=== PATIENT | female | born 1960 | race African-American/Black ===

== ENCOUNTER 2016-12-14 07:29 | Emergency (ER) | payer BC ==
[~2016-12-14] VITALS: Ht 167.6 cm; Wt 52.0 kg
[~2016-12-14 07:29] MED LIST: ACET650S25 PO; XOPENEX
[2016-12-14] MEDS ORDERED: PREDNISONE 20MG TABLET PO STA (08:12)
[2016-12-14] MEDS ORDERED: IPRATROPIUM BROMIDE (0.02%) 0.5MG/2.5ML NEB HHN STA (08:12)
[2016-12-14] MEDS ORDERED: ALBUTEROL (0.083%) 2.5MG/3ML NEB HHN STA (08:12)
[2016-12-14] MEDS ORDERED: ALBUTEROL (0.083%) 2.5MG/3ML NEB ONE (08:25)
[2016-12-14] MEDS ORDERED: IPRATROPIUM BROMIDE (0.02%) 0.5MG/2.5ML NEB ONE (08:25)
[2016-12-14 08:32] VITALS: BP 124/49
== END 2016-12-14 09:05 | disposition home or self-care (01) ==
LOC: ER 07:32
DX: J45.901 Unspecified asthma with (acute) exacerbation (principal); E03.9 Hypothyroidism, unspecified; Z88.0 Allergy status to penicillin; Z88.1 Allergy status to other antibiotic agents
CPT/HCPCS: 94640; 99283; J7512; J7611

== ENCOUNTER 2017-02-27 14:40 | Emergency (ER) | payer BC ==
[~2017-02-27] VITALS: Ht 167.6 cm; Wt 59.0 kg
[2017-02-27 14:55] VITALS: BP 138/70
== END 2017-02-27 22:24 | disposition left against medical advice (07) ==
LOC: ER 15:31
DX: Z53.21 Procedure and treatment not carried out due to patient leaving prior to being seen by health care provider (principal)

== ENCOUNTER 2017-07-09 09:06 | Emergency (ER) | payer BC ==
[~2017-07-09] VITALS: Ht 167.6 cm; Wt 61.0 kg
[2017-07-09] MEDS ORDERED: IPRATROPIUM BROMIDE (0.02%) 0.5MG/2.5ML NEB HHN STA (09:34)
[2017-07-09] MEDS ORDERED: ALBUTEROL (0.083%) 2.5MG/3ML NEB HHN STA (09:34)
[2017-07-09] MEDS ORDERED: PREDNISONE 20MG TABLET PO STA (09:34)
[2017-07-09 10:44] LABS: HEMATOCRIT. 35.6 % (36.0-48.0); HEMOGLOBIN. 11.5 g/dL (12.0-16.0); MEAN CORPUSCULAR HEMOGLOBIN 28.7 pg (28.0-32.0); MEAN CORPUSCULAR VOLUME 88.4 fL (81.0-99.0); MEAN PLATELET VOLUME 9.2 fl (7.4-10.4); PLATELET 186 x1000/uL (130-400); RED BLOOD CELL COUNT 4.02 mill/uL (4.2-5.4); RED CELL DISTRIBUTION WIDTH 12.8 % (11.6-14.6)
[2017-07-09 10:50] LABS: PROTHROMBIN TIME 10.9 sec (9.4-11.6)
[2017-07-09 11:52] LABS: PLATELET ESTIMATE NORMAL
[2017-07-09 12:09] LABS: CHLORIDE 105 mEq/L (98-107)
[2017-07-09] MEDS ORDERED: ALBUTEROL (0.083%) 2.5MG/3ML NEB HHN ONE (12:45)
[2017-07-09 13:44] VITALS: BP 127/64
== END 2017-07-09 13:51 | disposition home or self-care (01) ==
LOC: ER 09:14
DX: J45.901 Unspecified asthma with (acute) exacerbation (principal); M32.9 Systemic lupus erythematosus, unspecified; I49.1 Atrial premature depolarization; Z88.0 Allergy status to penicillin; Z88.1 Allergy status to other antibiotic agents
CPT/HCPCS: 36415; 71045; 80053; 85025; 85610; 93005; 94640; 99285; J7512; J7611

== ENCOUNTER 2018-01-29 07:49 | Emergency (ER) | payer BC ==
[~2018-01-29] VITALS: Ht 167.6 cm; Wt 57.9 kg
[2018-01-29] MEDS ORDERED: ALBU90AE INH (07:58)
[2018-01-29] MEDS ORDERED: IBUPROFEN 600MG TABLET PO ONE (09:00)
[2018-01-29] MEDS ORDERED: ALBUTEROL (0.5%) 2.5MG/0.5ML NEB HHN ONE (09:00)
[2018-01-29 10:43] VITALS: BP 147/61
== END 2018-01-29 10:43 | disposition home or self-care (01) ==
LOC: ER 07:49
DX: J06.9 Acute upper respiratory infection, unspecified (principal); R06.2 Wheezing; R03.0 Elevated blood-pressure reading, without diagnosis of hypertension; L50.9 Urticaria, unspecified; Z88.0 Allergy status to penicillin; Z91.012 Allergy to eggs
CPT/HCPCS: 71045; 87804; 94640; 99284; J7611

== ENCOUNTER 2018-04-06 10:38 | Inpatient (IN) | payer BC ==
[~2018-04-06] VITALS: Ht 167.6 cm; Wt 67.6 kg
[~2018-04-06 10:38] MED LIST changes: +ALBU90AE INH; -XOPENEX
[2018-04-06] MEDS ORDERED: METHYLPREDNISOLONE SOD SUCC 125 MG/2 ML VIAL IV STA (11:31)
[2018-04-06] MEDS ORDERED: IPRATROPIUM/ALBUTEROL 0.5-3(2.5)MG/3ML NEB HHN ONE ×2 (11:45→15:15)
[2018-04-06] MEDS ORDERED: MAGNESIUM 2 G PREMIX 50 ML IV ONE (11:45)
[2018-04-06 11:49] LABS: BASOPHILS % 0.9 % (0.0-2.0); EOSINOPHILS % 3.4 % (0.0-5.0); HEMOGLOBIN. 11.6 g/dL (12.0-16.0); LYMPHOCYTES % 32.8 % (20.0-50.0); MEAN CORPUSCULAR HEMOGLOBIN 29.7 pg (28.0-32.0); MEAN CORPUSCULAR VOLUME 89.9 fL (81.0-99.0); MEAN PLATELET VOLUME 9.5 fl (7.4-10.4); NEUTROPHILS % 48.9 % (40.0-76.0); PLATELET 203 x1000/uL (130-400)
[2018-04-06 11:55] LABS: CHLORIDE 106 mEq/L (98-107)
[2018-04-06] MEDS ORDERED: ALBUTEROL (0.5%) 2.5MG/0.5ML NEB HHN ONE (13:15)
[2018-04-06] MEDS ORDERED: CLONIDINE 0.1MG TABLET PO PRN (16:30)
[2018-04-06] MEDS ORDERED: NA PHOS,M-B/NA PHOS,DI-BA ENEMA 118ML PR PRN (16:30)
[2018-04-06] MEDS ORDERED: HYDRALAZINE 20MG/ML VIAL IV PRN (16:30)
[2018-04-06] MEDS ORDERED: GUAIFENESIN 200MG/10ML SUGAR FREE UDC PO PRN (16:30)
[2018-04-06] MEDS ORDERED: ONDANSETRON HCL 4MG/2ML INJ IV PRN (16:30)
[2018-04-06] MEDS ORDERED: HYDROCODONE/ACETAMINOPHEN 10/325MG TABLET PO PRN (16:30)
[2018-04-06] MEDS ORDERED: ACETAMINOPHEN 325MG TABLET PO PRN (16:30)
[2018-04-06] MEDS ORDERED: LORAZEPAM 2MG/ML CPJ IV PRN (16:30)
[2018-04-06] MEDS ORDERED: IPRATROPIUM/ALBUTEROL 0.5-3(2.5)MG/3ML NEB INH PRN (16:30)
[2018-04-06] MEDS ORDERED: DOCUSATE SODIUM 100MG CAPSULE PO PRN (16:30)
[2018-04-06] MEDS ORDERED: DIPHENHYDRAMINE 50MG/ML VIAL IV PRN (16:30)
[2018-04-06] MEDS ORDERED: HYDROMORPHONE HCL/PF 2MG/ML CPJ IV PRN (16:30)
[2018-04-06] MEDS ORDERED: MAGNESIUM/ALUMINUM HYDROXIDE/SIMETHICONE 30ML UDC PO PRN (16:30)
[2018-04-06] MEDS ORDERED: ENOXAPARIN 40MG/0.4ML SYR SUBCUT NR (18:30)
[2018-04-06] MEDS ORDERED: METHYLPREDNISOLONE SOD SUCC 125 MG/2 ML VIAL IV NR (18:30)
[2018-04-06 20:00] VITALS: BP 118/48
[2018-04-06 22:31] VITALS: BP 114/56
[2018-04-06] MEDS: SODIUM CHLORIDE 0.9% INJ 3ML FLUSH IVF SCH (22:53)
[2018-04-06] MEDS: METHYLPREDNISOLONE SOD SUCC 125 MG/2 ML VIAL IV SCH (23:53)
[2018-04-07] VITALS: BP 118/48
[2018-04-07 00:53] LABS: CREATINE KINASE 136 IU/L (26-192)
[2018-04-07 00:54] LABS: CREATINE KINASE MB FRACTION < 1.0 ng/mL (0.5-3.6)
[2018-04-07 04:00] VITALS: BP 117/63
[2018-04-07] MEDS: SODIUM CHLORIDE 0.9% INJ 3ML FLUSH IVF SCH ×3 (05:10→23:31)
[2018-04-07] MEDS: METHYLPREDNISOLONE SOD SUCC 125 MG/2 ML VIAL IV SCH ×2 (05:30→11:54)
[2018-04-07 06:34] LABS: BASOPHILS % 0.1 % (0.0-2.0); HEMOGLOBIN. 10.8 g/dL (12.0-16.0); LYMPHOCYTES % 9.7 % (20.0-50.0); MEAN CORPUSCULAR HEMOGLOBIN 29.1 pg (28.0-32.0); MEAN CORPUSCULAR VOLUME 88.7 fL (81.0-99.0); MEAN PLATELET VOLUME 9.5 fl (7.4-10.4); MONOCYTES % 3.8 % (2.0-8.0); NEUTROPHILS % 86.4 % (40.0-76.0); PLATELET 206 x1000/uL (130-400); RED BLOOD CELL COUNT 3.73 mill/uL (4.2-5.4); RED CELL DISTRIBUTION WIDTH 13.6 % (11.6-14.6)
[2018-04-07 07:33] LABS: CHLORIDE 105 mEq/L (98-107)
[2018-04-07 07:49] LABS: CREATINE KINASE 129 IU/L (26-192)
[2018-04-07 07:53] LABS: CREATINE KINASE MB FRACTION 1.2 ng/mL (0.5-3.6)
[2018-04-07 08:00] VITALS: BP 115/44
[2018-04-07] MEDS: ASPIRIN 81MG EC TABLET PO SCH (08:43)
[2018-04-07] MEDS ORDERED: GUAIFENESIN 200MG/10ML SUGAR FREE UDC PO PRN ×2 (11:15)
[2018-04-07 12:00] VITALS: BP 128/69
[2018-04-07 16:00] VITALS: BP 117/60
[2018-04-07] MEDS: ALBUTEROL (0.083%) 2.5MG/3ML NEB HHN SCH ×2 (16:56→20:25)
[2018-04-07] MEDS: METHYLPREDNISOLONE SOD SUCC 40 MG/ML VIAL IV SCH ×2 (17:22→22:43)
[2018-04-07] MEDS: HYDROCORTISONE 1% OINT 28.35GM TOP SCH ×2 (17:24→23:34)
[2018-04-07 20:00] VITALS: BP 124/46
[2018-04-07] MEDS: ENOXAPARIN 40MG/0.4ML SYR SUBCUT SCH (23:31)
[2018-04-08] VITALS: BP 108/39
[2018-04-08] MEDS: ALBUTEROL (0.083%) 2.5MG/3ML NEB HHN SCH ×6 (00:22→21:13)
[2018-04-08 04:00] VITALS: BP 102/58
[2018-04-08] MEDS: METHYLPREDNISOLONE SOD SUCC 40 MG/ML VIAL IV SCH ×2 (06:25→13:50)
[2018-04-08] MEDS: SODIUM CHLORIDE 0.9% INJ 3ML FLUSH IVF SCH ×3 (06:31→23:00)
[2018-04-08 08:00] VITALS: BP 112/45
[2018-04-08] MEDS: HYDROCORTISONE 1% OINT 28.35GM TOP SCH ×2 (08:51→23:00)
[2018-04-08] MEDS: ASPIRIN 81MG EC TABLET PO SCH (08:51)
[2018-04-08 12:00] VITALS: BP 131/55
[2018-04-08] MEDS: ALBUTEROL (0.5%) 2.5MG/0.5ML NEB HHN PRN ×2 (12:30→15:52)
[2018-04-08 16:00] VITALS: BP 127/60
[2018-04-08 20:00] VITALS: BP 128/67
[2018-04-08] MEDS ORDERED: METHYLPREDNISOLONE SOD SUCC 40 MG/ML VIAL IV SCH (22:00)
[2018-04-08] MEDS: ENOXAPARIN 40MG/0.4ML SYR SUBCUT SCH (22:30)
[2018-04-09] VITALS: BP 121/76
[2018-04-09] MEDS: ALBUTEROL (0.083%) 2.5MG/3ML NEB HHN SCH ×3 (00:55→08:56)
[2018-04-09 04:00] VITALS: BP 126/78
[2018-04-09] MEDS: SODIUM CHLORIDE 0.9% INJ 3ML FLUSH IVF SCH (07:26)
[2018-04-09 07:59] VITALS: BP 125/84
[2018-04-09 08:00] VITALS: BP 122/53
[2018-04-09] MEDS: ASPIRIN 81MG EC TABLET PO SCH (08:50)
[2018-04-09] MEDS: HYDROCORTISONE 1% OINT 28.35GM TOP SCH (08:50)
[2018-04-09] MEDS ORDERED: PREDNISONE 20MG TABLET PO SCH (09:00)
[2018-04-09 12:00] VITALS: BP_SYST 121; BP_SYST 125; BP_DIAS 60; BP_DIAS 66
== END 2018-04-09 12:02 | disposition home or self-care (01) | DRG 202 ==
LOC: ER 10:38 → 6EST 15:18 → ENRESERV 20:01 → 6EST 22:00
PROVIDERS: ADMIT Internal Medicine; ATTEND Internal Medicine
DX: J45.21 Mild intermittent asthma with (acute) exacerbation (principal); R65.10 Systemic inflammatory response syndrome (SIRS) of non-infectious origin without acute organ dysfunction; M32.9 Systemic lupus erythematosus, unspecified; D72.819 Decreased white blood cell count, unspecified; Z79.899 Other long term (current) drug therapy; Z98.891 History of uterine scar from previous surgery; Z88.0 Allergy status to penicillin; Z88.1 Allergy status to other antibiotic agents; Z91.012 Allergy to eggs
CPT/HCPCS: 36415; 71045; 82550; 82553; 84484; 93005; 94640; 96365; 96366; 96375; 99285; J1650; J2920; J2930; J3475; J7512; J7611; J7620

== ENCOUNTER 2018-06-19 08:39 | Emergency (ER) | payer BC ==
[~2018-06-19] VITALS: Ht 167.6 cm; Wt 64.0 kg
[2018-06-19] MEDS ORDERED: PREDNISONE 20MG TABLET PO ONE (09:15)
[2018-06-19] MEDS ORDERED: ALBUTEROL (0.083%) 2.5MG/3ML NEB HHN ONE ×2 (09:15→10:00)
[2018-06-19] MEDS ORDERED: IPRATROPIUM BROMIDE (0.02%) 0.5MG/2.5ML NEB HHN ONE (09:15)
[2018-06-19 09:17] LABS: HEMATOCRIT. 40.5 % (36.0-48.0); MEAN CORPUSCULAR HEMOGLOBIN 28.8 pg (28.0-32.0); MEAN CORPUSCULAR VOLUME 89.9 fL (81.0-99.0); MEAN PLATELET VOLUME 9.6 fl (7.4-10.4); PLATELET 229 x1000/uL (130-400); RED CELL DISTRIBUTION WIDTH 12.8 % (11.6-14.6)
[2018-06-19 09:28] LABS: CHLORIDE 105 mEq/L (98-107)
[2018-06-19 09:39] LABS: PLATELET ESTIMATE NORMAL
[2018-06-19 10:04] LABS: CLARITY URINE CLEAR (CLEAR); COLOR URINE YELLOW (YELLOW); KETONES URINE NEGATIVE (NEGATIVE); LEUKOCYTE ESTERASE URINE 3+ (NEGATIVE); NITRITE URINE NEGATIVE (NEGATIVE); OCCULT BLOOD URINE NEGATIVE (NEGATIVE); PROTEIN URINE NEGATIVE (NEGATIVE); SPECIFIC GRAVITY URINE 1.015 (1.005-1.030)
[2018-06-19 11:40] VITALS: BP 124/74
== END 2018-06-19 11:53 | disposition home or self-care (01) ==
LOC: ER 08:39
DX: R07.89 Other chest pain (principal); R06.02 Shortness of breath; J45.909 Unspecified asthma, uncomplicated; Z90.89 Acquired absence of other organs; Z98.890 Other specified postprocedural states; Z88.0 Allergy status to penicillin; Z91.013 Allergy to seafood; Z91.012 Allergy to eggs; Z88.8 Allergy status to other drugs, medicaments and biological substances
CPT/HCPCS: 36415; 71045; 80053; 81003; 83880; 84484; 85025; 93005; 94640; 99284; J7512; J7611

== ENCOUNTER 2018-11-23 08:21 | Emergency (ER) | payer BC ==
[~2018-11-23] VITALS: Ht 396.2 cm; Wt 61.0 kg
[2018-11-23] MEDS ORDERED: METHYLPREDNISOLONE SOD SUCC 125 MG/2 ML VIAL IV STA (08:53)
[2018-11-23] MEDS ORDERED: ALBUTEROL (0.083%) 2.5MG/3ML NEB HHN STA ×2 (08:53→12:24)
[2018-11-23] MEDS ORDERED: IPRATROPIUM BROMIDE (0.02%) 0.5MG/2.5ML NEB HHN STA (08:53)
[2018-11-23] MEDS ORDERED: ASPIRIN 81MG TABLET PO ONE (09:00)
[2018-11-23 09:20] LABS: HEMATOCRIT. 33.7 % (36.0-48.0); MEAN CORPUSCULAR HEMOGLOBIN 29.5 pg (28.0-32.0); MEAN CORPUSCULAR VOLUME 90.1 fL (81.0-99.0); MEAN PLATELET VOLUME 9.8 fl (7.4-10.4); PLATELET 177 x1000/uL (130-400); RED BLOOD CELL COUNT 3.74 mill/uL (4.2-5.4); RED CELL DISTRIBUTION WIDTH 13.2 % (11.6-14.6)
[2018-11-23 09:25] LABS: CHLORIDE 109 mEq/L (98-107)
[2018-11-23 09:39] LABS: PLATELET ESTIMATE NORMAL
[2018-11-23 13:51] VITALS: BP 115/58
== END 2018-11-23 14:01 | disposition home or self-care (01) ==
LOC: ER 08:21
DX: J45.901 Unspecified asthma with (acute) exacerbation (principal); Z98.890 Other specified postprocedural states; Z90.49 Acquired absence of other specified parts of digestive tract; E05.90 Thyrotoxicosis, unspecified without thyrotoxic crisis or storm; Z88.0 Allergy status to penicillin; Z91.013 Allergy to seafood; Z91.012 Allergy to eggs; Z88.1 Allergy status to other antibiotic agents
CPT/HCPCS: 36415; 71045; 80053; 83880; 84484; 85025; 93005; 94644; 96374; 99285; J2930; J7611; Z7610

== ENCOUNTER 2018-12-29 14:03 | Emergency (ER) | payer BC, MEDICAID ==
[~2018-12-29] VITALS: Ht 167.6 cm; Wt 62.0 kg
[2018-12-29] MEDS ORDERED: IPRATROPIUM BROMIDE (0.02%) 0.5MG/2.5ML NEB HHN STA (15:22)
[2018-12-29] MEDS ORDERED: ALBUTEROL (0.083%) 2.5MG/3ML NEB HHN STA ×2 (15:22→18:21)
[2018-12-29] MEDS ORDERED: METHYLPREDNISOLONE SOD SUCC 125 MG/2 ML VIAL IV STA (15:22)
[2018-12-29 15:39] LABS: CHLORIDE 103 mEq/L (98-107)
[2018-12-29 15:40] LABS: EOSINOPHILS % 3.4 % (0.0-5.0); HEMATOCRIT. 38.1 % (36.0-48.0); HEMOGLOBIN. 12.3 g/dL (12.0-16.0); LYMPHOCYTES % 11.6 % (20.0-50.0); MEAN CORPUSCULAR HEMOGLOBIN 29.1 pg (28.0-32.0); MEAN CORPUSCULAR VOLUME 89.8 fL (81.0-99.0); MEAN PLATELET VOLUME 9.6 fl (7.4-10.4); MONOCYTES % 12.3 % (2.0-8.0); NEUTROPHILS % 71.7 % (40.0-76.0); PLATELET 231 x1000/uL (130-400); RED BLOOD CELL COUNT 4.24 mill/uL (4.2-5.4)
[2018-12-29 19:33] VITALS: BP 110/81
== END 2018-12-29 20:01 | disposition home or self-care (01) ==
LOC: ER 14:03
DX: J45.901 Unspecified asthma with (acute) exacerbation (principal); M32.9 Systemic lupus erythematosus, unspecified; E03.9 Hypothyroidism, unspecified
CPT/HCPCS: 36415; 71045; 80053; 83880; 84484; 85025; 93005; 94640; 94644; 96374; 99285; J2930; J7611; Z7610

== ENCOUNTER 2019-01-05 09:09 | Emergency (ER) | payer MEDICAID ==
[~2019-01-05] VITALS: Ht 165.1 cm; Wt 85.0 kg
[2019-01-05 12:05] VITALS: BP 117/66
== END 2019-01-05 12:07 | disposition home or self-care (01) ==
LOC: ER 09:12
DX: H10.89 Other conjunctivitis (principal)
CPT/HCPCS: 99283

== ENCOUNTER 2020-04-16 14:37 | Emergency (ER) | payer MEDICAID ==
[~2020-04-16] VITALS: Ht 167.6 cm; Wt 68.0 kg
[2020-04-16] MEDS ORDERED: ALBUTEROL (0.083%) 2.5MG/3ML NEB HHN STA (15:29)
[2020-04-16] MEDS ORDERED: PREDNISONE 20MG TABLET PO STA (15:29)
[2020-04-16] MEDS ORDERED: IPRATROPIUM BROMIDE (0.02%) 0.5MG/2.5ML NEB HHN STA (15:29)
[2020-04-16] MEDS ORDERED: P50 MT (17:46)
[2020-04-16 18:03] VITALS: BP 165/72
== END 2020-04-16 18:04 | disposition home or self-care (01) ==
LOC: ER 14:37
DX: J45.901 Unspecified asthma with (acute) exacerbation (principal); R03.0 Elevated blood-pressure reading, without diagnosis of hypertension; M32.9 Systemic lupus erythematosus, unspecified; E03.9 Hypothyroidism, unspecified
CPT/HCPCS: 94640; 99285; J7512; Z7610

== ENCOUNTER 2020-06-24 20:50 | Inpatient (IN) | payer MEDICAID, OTHER ==
[~2020-06-24] VITALS: Ht 167.6 cm; Wt 73.5 kg
[~2020-06-24 20:50] MED LIST changes: +P50 MT
[2020-06-24] MEDS ORDERED: METHOCARBAMOL 500MG TABLET PO ONE (22:45)
[2020-06-24] MEDS ORDERED: KETOROLAC 30MG/ML VIAL IM ONE (22:45)
[2020-06-25] MEDS ORDERED: SODIUM CHLORIDE 0.9% 1,000 ML IV ONE (01:45)
[2020-06-25 02:04] LABS: BASOPHILS % 0.7 % (0.0-2.0); EOSINOPHILS % 0.2 % (0.0-5.0); HEMATOCRIT. 36.7 % (36.0-48.0); HEMOGLOBIN. 12.5 g/dL (12.0-16.0); LYMPHOCYTES % 23.6 % (20.0-50.0); MEAN CORPUSCULAR HEMOGLOBIN 30.9 pg (28.0-32.0); MEAN CORPUSCULAR VOLUME 90.7 fL (81.0-99.0); MEAN PLATELET VOLUME 9.3 fl (7.4-10.4); MONOCYTES % 9.8 % (2.0-8.0); NEUTROPHILS % 65.7 % (40.0-76.0); PLATELET 170 x1000/uL (130-400); RED BLOOD CELL COUNT 4.04 mill/uL (4.2-5.4); RED CELL DISTRIBUTION WIDTH 12.9 % (11.6-14.6)
[2020-06-25 02:10] LABS: CHLORIDE 110 mEq/L (98-107)
[2020-06-25 08:30] VITALS: BP 129/62
[2020-06-25 09:19] VITALS: BP 129/62
[2020-06-25 12:00] VITALS: BP 136/75
[2020-06-25 12:11] LABS: BASOPHILS % 0.6 % (0.0-2.0); EOSINOPHILS % 0.4 % (0.0-5.0); HEMATOCRIT. 37.5 % (36.0-48.0); HEMOGLOBIN. 12.6 g/dL (12.0-16.0); LYMPHOCYTES % 28.3 % (20.0-50.0); MEAN CORPUSCULAR HEMOGLOBIN 30.5 pg (28.0-32.0); MEAN CORPUSCULAR VOLUME 90.9 fL (81.0-99.0); MEAN PLATELET VOLUME 9.2 fl (7.4-10.4); MONOCYTES % 11.3 % (2.0-8.0); NEUTROPHILS % 59.4 % (40.0-76.0); PLATELET 159 x1000/uL (130-400); RED BLOOD CELL COUNT 4.13 mill/uL (4.2-5.4)
[2020-06-25 12:17] LABS: INR 1.1; PROTHROMBIN TIME 11.4 sec (9.6-11.0)
[2020-06-25 12:26] LABS: CHLORIDE 109 mEq/L (98-107)
[2020-06-25] MEDS ORDERED: IPRATROPIUM/ALBUTEROL 0.5-3(2.5)MG/3ML NEB HHN SCH ×2 (14:15→18:00)
[2020-06-25] MEDS ORDERED: LORAZEPAM 2MG/ML CPJ IV PRN (14:15)
[2020-06-25 16:00] VITALS: BP 109/55
[2020-06-25] MEDS ORDERED: HYDR-4001 MT (16:41)
[2020-06-25] MEDS ORDERED: P20 PO (16:43)
[2020-06-25] MEDS ORDERED: ALBU90AE INH (16:43)
[2020-06-25 17:52] VITALS: BP 109/55
== END 2020-06-25 18:45 | disposition home or self-care (01) | DRG 347 ==
LOC: ER 20:50 → 5WST 06-25 06:15 → ENRESERV 06-25 07:30
PROVIDERS: ADMIT Internal Medicine; ATTEND Internal Medicine
DX: S32.020A Wedge compression fracture of second lumbar vertebra, initial encounter for closed fracture (principal); M32.9 Systemic lupus erythematosus, unspecified; J45.901 Unspecified asthma with (acute) exacerbation; N28.1 Cyst of kidney, acquired; E86.0 Dehydration; F17.210 Nicotine dependence, cigarettes, uncomplicated; M48.061 Spinal stenosis, lumbar region without neurogenic claudication; E03.9 Hypothyroidism, unspecified; Z20.822 Contact with and (suspected) exposure to COVID-19; F41.9 Anxiety disorder, unspecified; R73.9 Hyperglycemia, unspecified; Y08.89XA Assault by other specified means, initial encounter; Y93.89 Activity, other specified; Y92.89 Other specified places as the place of occurrence of the external cause; Y99.8 Other external cause status; Z79.899 Other long term (current) drug therapy; Z90.49 Acquired absence of other specified parts of digestive tract; Z98.891 History of uterine scar from previous surgery; Z88.1 Allergy status to other antibiotic agents; Z91.012 Allergy to eggs; Z88.0 Allergy status to penicillin; Z91.013 Allergy to seafood; Z91.018 Allergy to other foods
CPT/HCPCS: 36415; 71250; 72148; 74176; 80048; 80053; 85025; 87426; 93005; 99291; J1885; J2060; J7030

== ENCOUNTER 2020-09-23 15:19 | Emergency (ER) | payer MEDICAID, OTHER ==
[~2020-09-23] VITALS: Ht 167.6 cm; Wt 64.6 kg
[~2020-09-23 15:19] MED LIST changes: +HYDR-4001 MT; +P20 PO
[2020-09-23 15:58] VITALS: BP 103/70
[2020-09-24] MEDS ORDERED: ALBU6.7H11 INH (09:44)
== END 2020-09-23 16:27 | disposition home or self-care (01) ==
LOC: ER 15:35
DX: Z53.21 Procedure and treatment not carried out due to patient leaving prior to being seen by health care provider (principal); R07.9 Chest pain, unspecified

== ENCOUNTER 2020-09-24 05:49 | Emergency (ER) | payer MEDICAID ==
[~2020-09-24] VITALS: Ht 167.6 cm; Wt 65.0 kg
[2020-09-24] MEDS ORDERED: METHYLPREDNISOLONE SOD SUCC 125 MG/2 ML VIAL IV STA (06:45)
[2020-09-24] MEDS ORDERED: IPRATROPIUM BROMIDE (0.02%) 0.5MG/2.5ML NEB HHN STA (06:45)
[2020-09-24] MEDS ORDERED: ALBUTEROL (0.083%) 2.5MG/3ML NEB HHN STA ×2 (06:45→09:14)
[2020-09-24] MEDS ORDERED: ALBUTEROL (0.083%) 2.5MG/3ML NEB ONE (09:39)
[2020-09-24] MEDS ORDERED: ALBU6.7H11 INH (09:44)
[2020-09-24 10:34] VITALS: BP 122/55
== END 2020-09-24 10:40 | disposition home or self-care (01) ==
LOC: ER 06:45
DX: J45.901 Unspecified asthma with (acute) exacerbation (principal); R03.0 Elevated blood-pressure reading, without diagnosis of hypertension; M32.9 Systemic lupus erythematosus, unspecified; E05.90 Thyrotoxicosis, unspecified without thyrotoxic crisis or storm; Z91.012 Allergy to eggs; Z91.02 Food additives allergy status; Z88.0 Allergy status to penicillin; Z91.013 Allergy to seafood; Z91.018 Allergy to other foods; Z79.51 Long term (current) use of inhaled steroids; Z79.899 Other long term (current) drug therapy; Z98.890 Other specified postprocedural states
CPT/HCPCS: 71045; 94640; 94644; 96374; 99285; J2930; Z7610

== ENCOUNTER 2021-03-22 18:40 | Emergency (ER) | payer MEDICAID, OTHER ==
[~2021-03-22] VITALS: Ht 167.6 cm; Wt 65.0 kg
[2021-03-22] MEDS: ALBUTEROL (0.083%) 2.5MG/3ML NEB HHN SCH (01:04)
[~2021-03-22 18:40] MED LIST changes: +ALBU6.7H15 INH
[2021-03-22] MEDS ORDERED: PREDNISONE 20MG TABLET PO STA (20:26)
[2021-03-22] MEDS ORDERED: IPRATROPIUM BROMIDE (0.02%) 0.5MG/2.5ML NEB HHN STA (20:26)
[2021-03-23] MEDS ORDERED: PREDNISONE 20MG TABLET PO NR (00:45)
[2021-03-23] MEDS ORDERED: ALBUTEROL (0.5%) 2.5MG/0.5ML NEB HHN ONE (01:04)
[2021-03-23] MEDS: ALBUTEROL (0.083%) 2.5MG/3ML NEB HHN SCH (01:04)
[2021-03-23] MEDS ORDERED: ALBUTEROL (0.083%) 2.5MG/3ML NEB ONE ×2 (01:05→02:20)
[2021-03-23] MEDS ORDERED: IPRATROPIUM BROMIDE (0.02%) 0.5MG/2.5ML NEB ONE ×2 (01:05→02:21)
[2021-03-23] MEDS ORDERED: HYDROCODONE/ACETAMINOPHEN 5/325MG TABLET PO ONE (02:15)
[2021-03-23 03:12] LABS: BASOPHILS % 0.7 % (0.0-2.0); EOSINOPHILS % 5.3 % (0.0-5.0); HEMOGLOBIN. 11.7 g/dL (12.0-16.0); MEAN CORPUSCULAR HEMOGLOBIN 29.3 pg (28.0-32.0); MEAN CORPUSCULAR VOLUME 87.9 fL (81.0-99.0); MEAN PLATELET VOLUME 9.9 fl (7.4-10.4); MONOCYTES % 6.2 % (2.0-8.0); NEUTROPHILS % 73.8 % (40.0-76.0); PLATELET 160 x1000/uL (130-400); RED BLOOD CELL COUNT 3.98 mill/uL (4.2-5.4); RED CELL DISTRIBUTION WIDTH 13.3 % (11.6-14.6)
[2021-03-23 03:20] LABS: CHLORIDE 104 mEq/L (98-107)
[2021-03-23] MEDS ORDERED: P20 MT (03:51)
[2021-03-23 03:55] VITALS: BP 115/67
== END 2021-03-23 04:02 | disposition home or self-care (01) ==
LOC: ER 18:40
DX: J45.901 Unspecified asthma with (acute) exacerbation (principal); E05.90 Thyrotoxicosis, unspecified without thyrotoxic crisis or storm; Z98.890 Other specified postprocedural states; Z90.49 Acquired absence of other specified parts of digestive tract; Z79.899 Other long term (current) drug therapy
CPT/HCPCS: 36415; 71045; 80053; 83605; 83880; 84484; 85025; 85379; 87040; 93005; 94640; 94644; 99285; J7512; Z7610

== ENCOUNTER 2021-09-01 06:20 | Emergency (ER) | payer MEDICAID, OTHER ==
[~2021-09-01] VITALS: Ht 167.6 cm; Wt 59.0 kg
[~2021-09-01 06:20] MED LIST changes: +P20 MT
[2021-09-01 06:27] VITALS: BP 152/83
[2021-09-01] MEDS ORDERED: OFLO5DRO3 EACHEYE (07:55)
[2021-09-01] MEDS ORDERED: LORA-1087 MT (07:55)
== END 2021-09-01 07:59 | disposition home or self-care (01) ==
LOC: ER 06:20
DX: H10.32 Unspecified acute conjunctivitis, left eye (principal); R03.0 Elevated blood-pressure reading, without diagnosis of hypertension; M32.9 Systemic lupus erythematosus, unspecified; E05.90 Thyrotoxicosis, unspecified without thyrotoxic crisis or storm; J45.909 Unspecified asthma, uncomplicated; Z88.0 Allergy status to penicillin; Z79.899 Other long term (current) drug therapy; Z79.51 Long term (current) use of inhaled steroids
CPT/HCPCS: 99283

== ENCOUNTER 2022-04-25 03:46 | Emergency (ER) | payer MEDICAID, OTHER ==
[~2022-04-25] VITALS: Ht 167.6 cm; Wt 59.0 kg
[~2022-04-25 03:46] MED LIST changes: +LORA-1087 MT; +OFLO5DRO3 EACHEYE
[2022-04-25] MEDS ORDERED: GRIS500T6 MT (06:18)
[2022-04-25] MEDS ORDERED: NYST15CR36 TP (06:18)
[2022-04-25] MEDS ORDERED: DIPH25CA83 MT (06:18)
[2022-04-25] MEDS ORDERED: DIPHENHYDRAMINE 25MG CAPSULE PO ONE (06:30)
[2022-04-25] MEDS ORDERED: IBUPROFEN 600MG TABLET PO ONE (06:30)
[2022-04-25 06:53] VITALS: BP 126/64
== END 2022-04-25 06:54 | disposition home or self-care (01) ==
LOC: ER 03:46
DX: B35.0 Tinea barbae and tinea capitis (principal)
CPT/HCPCS: 99283; Q0163

== ENCOUNTER 2022-05-10 04:00 | Emergency (ER) | payer MEDICAID ==
[~2022-05-10] VITALS: Ht 170.2 cm; Wt 70.0 kg
[~2022-05-10 04:00] MED LIST changes: +DIPH25CA83 MT; +GRIS500T6 MT; +NYST15CR36 TP
[2022-05-10] MEDS ORDERED: PREDNISONE 20MG TABLET PO STA (04:53)
[2022-05-10] MEDS ORDERED: ALBUTEROL (0.083%) 2.5MG/3ML NEB HHN STA (04:53)
[2022-05-10] MEDS ORDERED: IPRATROPIUM BROMIDE (0.02%) 0.5MG/2.5ML NEB HHN STA (04:53)
[2022-05-10 08:08] VITALS: BP 126/41
== END 2022-05-10 08:45 | disposition home or self-care (01) ==
LOC: ER 04:10
DX: J45.909 Unspecified asthma, uncomplicated (principal); Z88.0 Allergy status to penicillin; Z91.018 Allergy to other foods; Z91.013 Allergy to seafood; Z88.1 Allergy status to other antibiotic agents; Z79.899 Other long term (current) drug therapy; Z90.49 Acquired absence of other specified parts of digestive tract; Z98.890 Other specified postprocedural states; Z86.39 Personal history of other endocrine, nutritional and metabolic disease
CPT/HCPCS: 94644; 99285; J7512; Z7610

== ENCOUNTER 2023-06-10 19:42 | Emergency (ER) | payer MEDICAID, OTHER ==
[~2023-06-10] VITALS: Ht 167.6 cm; Wt 73.0 kg
[~2023-06-10 19:42] MED LIST changes: +OCUFLX EACHEYE; -OFLO5DRO3 EACHEYE
[2023-06-10 20:00] VITALS: O2SAT 100
[2023-06-10 20:33] LABS: CLARITY URINE CLEAR (CLEAR); COLOR URINE YELLOW (YELLOW); GLUCOSE URINE NEGATIVE (NEGATIVE); KETONES URINE NEGATIVE (NEGATIVE); LEUKOCYTE ESTERASE URINE 1+ (NEGATIVE); NITRITE URINE NEGATIVE (NEGATIVE); OCCULT BLOOD URINE TRACE (NEGATIVE); PH URINE 5.5 (4.5-8.0); PROTEIN URINE NEGATIVE (NEGATIVE); SPECIFIC GRAVITY URINE 1.017 (1.005-1.030)
[2023-06-10 20:49] LABS: BACTERIA URINE TRACE; RBC URINE 0-2 /hpf (0-2); SQUAMOUS EPITHELIAL CELL URINE 1+ /lpf (RARE/1+)
[2023-06-10] MEDS ORDERED: METH-653 MT (21:57)
[2023-06-10] MEDS ORDERED: CEFP200T13 MT (21:57)
[2023-06-10] MEDS ORDERED: IBUPROFEN 400MG TABLET PO ONE (22:00)
[2023-06-10] MEDS ORDERED: LIDOCAINE HCL 1% 20ML VIAL (Pyxis) INJ INFIL ONE (22:00)
[2023-06-10] MEDS ORDERED: CEFTRIAXONE SODIUM 1G VIAL IM ONE (22:00)
[2023-06-10 23:11] VITALS: BP 128/89; PULSE 64; RESP 12; TEMP 98.8
== END 2023-06-10 23:00 | disposition home or self-care (01) ==
LOC: ER 19:42
DX: M54.50 Low back pain, unspecified (principal); N39.0 Urinary tract infection, site not specified; M62.838 Other muscle spasm; J45.909 Unspecified asthma, uncomplicated; Z98.890 Other specified postprocedural states; Z90.49 Acquired absence of other specified parts of digestive tract; Z88.8 Allergy status to other drugs, medicaments and biological substances; Z91.013 Allergy to seafood; Z91.018 Allergy to other foods; Z88.0 Allergy status to penicillin; Z91.012 Allergy to eggs
CPT/HCPCS: 81003; 99283

== ENCOUNTER 2023-08-11 03:32 | Emergency (ER) | payer OTHER ==
[~2023-08-11] VITALS: Ht 167.6 cm; Wt 73.0 kg
[~2023-08-11 03:32] MED LIST changes: +CEFP200T13 MT; +METH-653 MT
[2023-08-11 03:48] VITALS: BP 122/55; PULSE 61; RESP 18; TEMP 97.8; O2SAT 98
[2023-08-11] MEDS ORDERED: ACETAMINOPHEN 325MG TABLET PO ONE (07:15)
[2023-08-11] MEDS ORDERED: TRIMO EACHEYE (07:17)
== END 2023-08-11 07:58 | disposition home or self-care (01) ==
LOC: ER 03:32
DX: H10.9 Unspecified conjunctivitis (principal); J45.909 Unspecified asthma, uncomplicated; Z88.0 Allergy status to penicillin; Z88.1 Allergy status to other antibiotic agents; Z91.018 Allergy to other foods; Z91.013 Allergy to seafood; Z79.899 Other long term (current) drug therapy; Z98.890 Other specified postprocedural states; Z86.39 Personal history of other endocrine, nutritional and metabolic disease
CPT/HCPCS: 99283

== ENCOUNTER 2024-01-01 13:30 | Emergency (ER) | payer OTHER ==
[~2024-01-01] VITALS: Ht 170.2 cm; Wt 75.0 kg
[~2024-01-01 13:30] MED LIST changes: +TRIMO EACHEYE
[2024-01-01 14:00] VITALS: O2SAT 100
[2024-01-01] MEDS ORDERED: PROP1DRO2 MT (15:31)
[2024-01-01 15:49] VITALS: BP 137/95; PULSE 70; RESP 18; TEMP 36.94740; O2SAT 100
== END 2024-01-01 15:50 | disposition home or self-care (01) ==
LOC: ER 13:30
DX: H57.11 Ocular pain, right eye (principal); J45.909 Unspecified asthma, uncomplicated; E03.9 Hypothyroidism, unspecified; Z90.49 Acquired absence of other specified parts of digestive tract; Z88.0 Allergy status to penicillin; Z98.890 Other specified postprocedural states; Z79.899 Other long term (current) drug therapy
CPT/HCPCS: 99282